=== PATIENT | female | born 1955 | race Caucasian/White ===

== ENCOUNTER → 2016-10-15 | Day surgery (SDC) | payer BC ==
[~2016-10-15] MED LIST: AMBIEN CR PO; BACLOFEN20 M1 PO; DARVOCET-N 1001 TAB PO; FLEXERIL PO; IBUPROFEN PO; KLONOPIN0.5 MG PO; LAMICTAL; LAMICTAL PO; LORTAB 10/500 T1 TAB PO; LOTREL 10/40 MG1 CAP PO; NEURONTIN600 MG PO; PERCOCET 10/3251 TAB; PERCOCET 5-3251 TAB PO; ROBAXIN PO; SKELAXIN PO; TIZANIDINE HCL4 M1 PO; TOPAMAX; TOPAMAX PO; ZONEGRAN100 MG PO
--- NOTE | ~2016-10-15 | OR ---
Unit #: [id number] #: [id number] Patient: MOMO COATES [id number] [address] [place], [place] [address] [id number] O MR#: [id number] NAME: MOMO COATES ROOM: Date of Procedure: 10/15/2016 Admission Date: 10/15/2016 Surgeon: Benjie Tucker M.D. : 1955 Attending Physician: Benjie Tucker M.D. Primary Care Physician: Nikhil Han M.D. OPERATIVE REPORT JOB NOTE: CC: [facility] PREOPERATIVE DIAGNOSES 1. Radiculopathy. 2. Herniated nucleus pulposus. POSTOPERATIVE DIAGNOSES 1. Radiculopathy. 2. Herniated nucleus pulposus. PROCEDURE PERFORMED Transforaminal epidural steroid injection x2 levels with intravenous sedation and fluoroscopic guidance for needle localization. INDICATIONS FOR PROCEDURE The patient is a 61-year-old female with return of significant left lower extremity pain, paresthesia, and tingling. She has known left-sided nerve root impingement at the left L2-L3 and L4-L5 levels. She was treated with trial of transforaminal epidural steroids back in the middle of March and did quite well initially for this radicular pain. She continued to have back pain that did not settle with other interventions and is treated medically. At this point, the left leg pain is the biggest issue. Based on good response, she had plan is to repeat a trial of transforaminal epidurals at the left L2-L3 and L4-L5. DESCRIPTION OF PROCEDURE The patient was placed in a prone position. Standard monitors were applied. 4 mg of Versed were given in divided doses for anxiolysis and sedation, which were adequate. Vital signs remained stable. Sterile prep and drape then of the lumbar area was performed. The skin to the left of midline lateral to the L2-L3 and L4-L5 level was localized with 1% lidocaine. A long 22-gauge Quincke point spinal needle was then advanced with biplanar fluoroscopic guidance at both of these levels to bring the needle tip to within the edge of the respective left L2-L3 and L4-L5 neural foramina. The patient had mild paresthesia at L4-L5 level, which resolved with manipulation of the needle. After confirming proper positioning with fluoroscopy and radiographic contrast, 2 mL of mixture of 80 mg of Depo-Medrol and 3 mL of 0.25% bupivacaine was injected at each one of these neural foramina. The patient tolerated the procedure otherwise well and was discharged to the recovery room in stable condition. Unit #: [id number] #: [id number] Patient: MOMO COATES Dictated by... Bulmaro Lucio/dilcia TD: 10/16/2016 03:40 JOB #: [id number] OPERATIVE REPORT Page 1 of 1 X Benjie Tucker MD X PROCEDURE OPERATIVE NOTE
== END | disposition home or self-care (01) ==
LOC: CCSC 10:07
DX: M51.16 Intervertebral disc disorders with radiculopathy, lumbar region (principal)
CPT/HCPCS: J1040; J2250

== ENCOUNTER → 2016-10-22 | Day surgery (SDC) | payer BC ==
--- NOTE | ~2016-10-22 | OR ---
Unit #: [id number] #: [id number] Patient: MOMO COATES [id number] [address] [place], [place] [address] [id number] O MR#: [id number] NAME: MOMO COATES ROOM: Date of Procedure: 10/22/2016 Admission Date: 10/22/2016 Surgeon: Benjie Tucker M.D. : 1955 Attending Physician: Benjie Tucker M.D. Primary Care Physician: Nikhil Han M.D. OPERATIVE REPORT PREOPERATIVE DIAGNOSES 1. Back pain. 2. Radiculopathy. 3. Degenerative lumbar disk disease. POSTOPERATIVE DIAGNOSES 1. Back pain. 2. Radiculopathy. 3. Degenerative lumbar disk disease. PROCEDURE PERFORMED Transforaminal epidural steroid injection x2 levels with intravenous sedation and fluoroscopic guidance for needle localization. INDICATIONS FOR PROCEDURE The patient is a 61-year-old female with multilevel multifactorial degenerative disk and spine disease. She has issues causing right leg pain, left leg pain, and the back pain. Right leg pain is remain settled quite sometime following the right L3-L4 transforaminal injection. Translaminar injections have been helpful for the low back pain that were last about 4 months ago. She had resurgence of the left leg pain which she has done well with a left-sided L2-L3 and L4-L5 transforaminal injection back approximately 6 months ago. She had resurgence of that pain. Repeat injections were done recently, which did not result in substantial change in that left leg pain. Based on good response she had in the past with the translaminar injections, her pathology, symptomatology, and limited other options, we are going to proceed with a repeat injection today. If this is unsuccessful, we may consider spinal cord stimulation and she has failed other attempts with medical management. DESCRIPTION OF PROCEDURE The patient was placed in a prone position. Standard monitors were applied. 4 mg of Versed were given in divided doses for anxiolysis and sedation, which were adequate. Vital signs remained stable. Sterile prep and drape then of the lumbar area was performed. The skin then to the left of midline was localized with 1% lidocaine lateral to the L2-L3 and L4-L5 levels. A long 22-gauge Quincke point spinal needle was then advanced at each of these levels with biplanar fluoroscopic guidance. After confirming proper positioning with biplanar fluoroscopy and radiographic contrast, a dose of 80 mg of Depo-Medrol and 1 mL of 0.25% bupivacaine was injected into the left L2-L3 neural foramina and then the Unit #: [id number] #: [id number] Patient: MOMO COATES left L4-L5 neural foramina. The needles were flushed and removed. The patient tolerated the procedure otherwise well and was discharged to the recovery room in stable condition. Dictated by... Bulmaro Lucio/dilcia TD: 10/23/2016 02:33 JOB #: [id number] OPERATIVE REPORT Page 1 of 1 X Benjie Tucker MD X PROCEDURE OPERATIVE NOTE
== END | disposition home or self-care (01) ==
LOC: CCSC 09:37
DX: M51.16 Intervertebral disc disorders with radiculopathy, lumbar region (principal)
CPT/HCPCS: J1040; J2250

== ENCOUNTER → 2016-11-05 | Day surgery (SDC) | payer BC ==
--- NOTE | ~2016-11-05 | OR ---
Unit #: [id number] #: [id number] Patient: MOMO COATES [id number] [address] [place], [place] [address] [id number] O MR#: [id number] NAME: MOMO COATES ROOM: Date of Procedure: 11/05/2016 Admission Date: 11/05/2016 Surgeon: Benjie Tucker M.D. : 1955 Attending Physician: Benjie Tucker M.D. Primary Care Physician: Nikhil Han M.D. OPERATIVE REPORT PREOPERATIVE DIAGNOSES 1. Radiculopathy. 2. Degenerative lumbar disk disease with myelopathy. 3. Back pain. POSTOPERATIVE DIAGNOSES 1. Radiculopathy. 2. Degenerative lumbar disk disease with myelopathy. 3. Back pain. PROCEDURE PERFORMED Transforaminal epidural steroid injection x2 levels with intravenous sedation and fluoroscopic guidance for needle localization. INDICATIONS FOR PROCEDURE The patient is a 61-year-old female, who had return of significant left lower extremity pain. She has multilevel multifactorial disk and spine issues, back pain and radiculopathy on the right, settled well with translaminar epidural steroid injection that is stayed well controlled. She has significant left leg pain. There is neural foraminal compression with nerve root irritation likely at the left at the L2-L3 and L4-L5 level, which is felt to be the etiologies for this problem. Transforaminal injections done at those 2 levels 2 weeks ago, which resulted in definite improvement in the sharp shooting pain. It has not helped the burning as much. We are going to proceed with a repeat transforaminal epidurals at these 2 levels based on her partial response, pathology, symptomatology, and treatment options. DESCRIPTION OF PROCEDURE The patient was placed in a prone position. Standard monitors were applied. 4 mg of Versed were given for sedation and anxiolysis, which were adequate. Vital signs remained stable. Sterile prep and drape then of the lumbar area was performed. The skin then to the left of midline lateral to the L4-L5 and the L2-L3 level was localized with 1% lidocaine. A long 22-gauge Quincke point spinal needles were advanced at these 2 separate levels with biplanar fluoroscopic guidance to bring the needle tip to within the neural foramina and the left at the L2-L3 and the L4-L5 levels. The patient had mild paresthesia in both these locations, which abated with needle manipulation. Proper position was confirmed then with radiographic contrast and fluoroscopy. This was followed by a dose of 80 mg of Depo-Medrol and 3 mL of 0.25% bupivacaine. 2 mL were injected at Unit #: [id number] #: [id number] Patient: MOMO COATES each of the neural foramina. There was some mild reproduction of the injection phase. The patient tolerated the procedure otherwise well and was discharged to the recovery room in stable condition. Dictated by... Bulmaro Lucio/dilcia TD: 11/06/2016 00:54 JOB #: [id number] OPERATIVE REPORT Page 1 of 1 X Benjie Tucker MD X PROCEDURE OPERATIVE NOTE
== END | disposition home or self-care (01) ==
LOC: CCSC 09:36
DX: M51.06 Intervertebral disc disorders with myelopathy, lumbar region (principal); M51.16 Intervertebral disc disorders with radiculopathy, lumbar region
CPT/HCPCS: J1040; J2250